=== PATIENT | female | born 1995 | race Caucasian/White ===

== ENCOUNTER 2020-12-18 11:56 | Emergency (ER) | payer MEDICAID ==
[~2020-12-18] VITALS: Ht 162.6 cm; Wt 61.4 kg
[~2020-12-18 11:56] MED LIST: ALBU8.5H8 IH; CYCL-1 PO; HYDR-4383 PO; IBUP-1986 PO; KEN0.1O TP
[2020-12-18 13:45] VITALS: BP 121/77
== END 2020-12-18 13:47 | disposition home or self-care (01) ==
LOC: ER 11:57
DX: R00.2 Palpitations (principal); F17.200 Nicotine dependence, unspecified, uncomplicated; Z98.891 History of uterine scar from previous surgery; Z90.89 Acquired absence of other organs; Z79.899 Other long term (current) drug therapy
CPT/HCPCS: 93005; 99283